=== PATIENT | female | born 1970 | race Caucasian/White ===

== ENCOUNTER 2018-10-17 20:05 | Emergency (ER) | payer SELFPAY ==
[~2018-10-17] VITALS: Ht 160 cm; Wt 49.9 kg
[2018-10-17] MEDS ORDERED: HYDROmorphone HCL 2 MG/ML VL ONE (20:12)
[2018-10-17] MEDS ORDERED: ONDANSETRON HCL 4 MG/2 ML VIAL ONE (20:13)
[2018-10-17] MEDS ORDERED: LIDOCAINE 2% (LOCAL ANESTH.) PF 5ml SDV ONE (20:22)
[2018-10-17] MEDS ORDERED: KETOROLAC TROMETH 60MG/2ML VIAL IM ONE (20:30)
[2018-10-17] MEDS ORDERED: ONDANSETRON HCL 4 MG/2 ML VIAL IV ONE (20:30)
[2018-10-17] MEDS ORDERED: HYDROmorphone HCL 2 MG/ML VL IV ONE (20:30)
[2018-10-17] MEDS ORDERED: cefTRIAXone SOD 1,000 MG VL IM ONE (20:30)
[2018-10-17 20:40] VITALS: BP 150/97
== END 2018-10-17 22:36 | disposition left against medical advice (07) ==
LOC: ER 20:08
DX: S61.212A Laceration without foreign body of right middle finger without damage to nail, initial encounter (principal); Z53.29 Procedure and treatment not carried out because of patient's decision for other reasons; W26.9XXA Contact with unspecified sharp object(s), initial encounter; Y93.89 Activity, other specified; Y99.8 Other external cause status; Y92.89 Other specified places as the place of occurrence of the external cause
CPT/HCPCS: 96372; 99283; J0696; J1170; J1885; J2001; J2405